=== PATIENT | female | born 1975 | race Two or more races ===

== ENCOUNTER 2019-03-22 12:50 | Observation (INO) | payer OTHER ==
[~2019-03-22] VITALS: Ht 161 cm; Wt 78.0 kg
[~2019-03-22 12:50] MED LIST: ACET-66 PO; FERR1TAB24 PO; PREN1TAB22 PO
[2019-03-22 14:23] VITALS: BP 113/73
[2019-03-22] MEDS ORDERED: PROG200C11 VG (14:25)
[2019-03-22] MEDS ORDERED: FOLI0.4T14 PO (14:25)
[2019-03-22] MEDS ORDERED: NIFEdipine 10 MG CAPSULE PO ONE ×2 (14:45→16:45)
[2019-03-22] MEDS ORDERED: FERR-89 PO (16:34)
[2019-03-22] MEDS ORDERED: PREN1TAB80 PO (16:34)
[2019-03-22] MEDS ORDERED: RINGERS SOLUTION,LACTATED 1,000 ML IV ONE (16:42)
[2019-03-22] MEDS ORDERED: RINGERS SOLUTION,LACTATED 1,000 ML IV SCH (18:18)
[2019-03-22] MEDS ORDERED: RINGERS SOLUTION,LACTATED 1,000 ML IV PRN (18:18)
[2019-03-22] MEDS ORDERED: METOCLOPRAMIDE HCL 5 MG/ML 2 ML VIAL IVP PRN (18:30)
[2019-03-22] MEDS ORDERED: CITRIC ACID/SODIUM CITRATE 30 ML SOLUTION UDCUP PO PRN (18:30)
[2019-03-22] MEDS ORDERED: MAGNESIUM SULFATE 4 GM/WATER 100 ML IV ONE ×2 (18:30→19:30)
[2019-03-22] MEDS ORDERED: CITRIC ACID/SODIUM CITRATE 30 ML SOLUTION UDCUP PO ONE (18:30)
[2019-03-22] MEDS ORDERED: FentaNYL CITRATE-PF 100 MCG/2 ML VIAL IVP PRN (18:30)
[2019-03-22] MEDS ORDERED: TERBUTALINE SULFATE 1 MG/ML VIAL SQ PRN (18:30)
[2019-03-22] MEDS ORDERED: METOCLOPRAMIDE HCL 5 MG/ML 2 ML VIAL IVP ONE (18:30)
[2019-03-22] MEDS: BETAMETHASONE SOLUSPAN 6 MG/ML 5 ML VIAL IM SCH (18:56)
[2019-03-22 19:09] LABS: BASOPHILS % (AUTO) 0.6 % (0.0-2.0); EOSINOPHILS % (AUTO) 1.4 % (1.0-6.0); HEMATOCRIT 33.5 % (36-46); HEMOGLOBIN 11.2 g/dL (12.0-16.0); LYMPHOCYTES # (AUTO) 1.5 K/uL (1.0-4.8); LYMPHOCYTES % (AUTO) 16.4 % (22.0-44.0); MEAN CORPUSCULAR HEMOGLOBIN 27.5 pg (26.0-34.0); MEAN CORPUSCULAR HGB CONC 33.4 G/dL (31.0-37.0); MEAN CORPUSCULAR VOLUME 82 fL (80-100); MONOCYTES # (AUTO) 0.3 K/uL (0.1-1.0); MONOCYTES % (AUTO) 3.5 % (2.0-9.0); NEUTROPHILS % (AUTO) 78.1 % (40.0-70.0); PLATELET COUNT (AUTO)-OB 287 K/uL (150-450); RED BLOOD CELL COUNT(AUTO) 4.07 MIL/uL (4.00-5.20); RED CELL DISTRIBUTION WIDTH 14.1 % (11.5-14.5)
[2019-03-22] MEDS ORDERED: CALCIUM GLUCONATE 100 MG/ML 10 ML IVP PRN (19:30)
[2019-03-22] MEDS: ACETAMINOPHEN 500 MG TABLET PO PRN (19:50)
[2019-03-22] MEDS ORDERED: OXYGEN THERAPY IH SCH (20:00)
[2019-03-22] MEDS: MAGNESIUM SULFATE 500 ML IV SCH (20:22)
[2019-03-23] MEDS: MAGNESIUM SULFATE 500 ML IV SCH (06:11)
[2019-03-23] MEDS: BETAMETHASONE SOLUSPAN 6 MG/ML 5 ML VIAL IM SCH (07:01)
[2019-03-23] MEDS: ACETAMINOPHEN 500 MG TABLET PO PRN (07:40)
== END 2019-03-23 12:20 | disposition home or self-care (01) ==
LOC: OBSVTOIN 12:50 → INTOOBSV 12:50 → 4S 12:50
PROVIDERS: ADMIT Obstetrics & Gynecology; ATTEND Obstetrics & Gynecology
DX: O60.03 Preterm labor without delivery, third trimester (principal); O26.893 Other specified pregnancy related conditions, third trimester; R51 Headache; Z3A.36 36 weeks gestation of pregnancy; Z79.899 Other long term (current) drug therapy
CPT/HCPCS: 36415 ×2; 81002; 83735; 85025; 86850; 86900; 86901; 96365; 96366 ×2; 96372 ×2; G0378 ×2; J0702 ×2; J3475 ×3; J7120 ×2

== ENCOUNTER 2019-03-24 11:55 | Observation (INO) | payer OTHER ==
[~2019-03-24] VITALS: Ht 161 cm; Wt 78.0 kg
[~2019-03-24 11:55] MED LIST changes: +FERR-89 PO; +FOLI0.4T14 PO; +PREN1TAB80 PO; +PROG200C11 VG
[2019-03-24 12:26] VITALS: BP 123/66
[2019-03-24] MEDS ORDERED: DEXTROSE 5%-LACTATED RINGERS 1,000 ML IV SCH (12:30)
[2019-03-24] MEDS ORDERED: RINGERS SOLUTION,LACTATED 1,000 ML IV SCH (14:30)
== END 2019-03-24 15:55 | disposition home or self-care (01) ==
LOC: 4S 11:55
PROVIDERS: ADMIT Obstetrics & Gynecology; ATTEND Obstetrics & Gynecology
DX: O41.93X0 Disorder of amniotic fluid and membranes, unspecified, third trimester, not applicable or unspecified (principal); Z3A.36 36 weeks gestation of pregnancy
CPT/HCPCS: 76805; G0378; X7700

== ENCOUNTER 2019-03-31 10:15 | Inpatient (IN) | payer OTHER ==
[~2019-03-31] VITALS: Ht 160 cm; Wt 77.6 kg
[~2019-03-31 10:15] MED LIST changes: -FERR1TAB24 PO; -PREN1TAB22 PO
[2019-03-31] MEDS ORDERED: PREN-217 PO (11:12)
[2019-03-31] MEDS ORDERED: CITRIC ACID/SODIUM CITRATE 30 ML SOLUTION UDCUP PO ONE (11:15)
[2019-03-31] MEDS ORDERED: METOCLOPRAMIDE HCL 5 MG/ML 2 ML VIAL IVP ONE (11:15)
[2019-03-31 11:19] VITALS: BP 118/72
[2019-03-31 11:48] LABS: BASOPHILS % (AUTO) 0.4 % (0.0-2.0); EOSINOPHILS % (AUTO) 1.2 % (1.0-6.0); HEMATOCRIT 34.5 % (36-46); HEMOGLOBIN 11.4 g/dL (12.0-16.0); LYMPHOCYTES # (AUTO) 1.4 K/uL (1.0-4.8); LYMPHOCYTES % (AUTO) 16.3 % (22.0-44.0); MEAN CORPUSCULAR HEMOGLOBIN 27.2 pg (26.0-34.0); MEAN CORPUSCULAR HGB CONC 33.1 G/dL (31.0-37.0); MEAN CORPUSCULAR VOLUME 82 fL (80-100); MONOCYTES # (AUTO) 0.5 K/uL (0.1-1.0); MONOCYTES % (AUTO) 5.4 % (2.0-9.0); NEUTROPHILS # (AUTO) 6.8 K/uL (1.8-7.7); NEUTROPHILS % (AUTO) 76.7 % (40.0-70.0); PLATELET COUNT (AUTO)-OB 293 K/uL (150-450); RED CELL DISTRIBUTION WIDTH 14.2 % (11.5-14.5)
[2019-03-31] MEDS ORDERED: MORPHINE SULFATE/PF 1 MG/ML 10 ML AMP ONE (12:04)
[2019-03-31] MEDS ORDERED: MIDAZOLAM HCL 2 MG/2 ML VIAL ONE (12:04)
[2019-03-31] MEDS ORDERED: FentaNYL CITRATE-PF 100 MCG/2 ML VIAL ONE (12:04)
[2019-03-31] MEDS ORDERED: BUPIVACAINE HCL/DEX-WATER/PF 0.75% 2 ML AMP ONE (12:05)
[2019-03-31] MEDS ORDERED: ONDANSETRON HCL 4 MG/2 ML VIAL IVP PRN (12:45)
[2019-03-31] MEDS ORDERED: NALOXONE HCL 0.4 MG/ML VIAL IVP PRN (12:45)
[2019-03-31] MEDS ORDERED: ACETAMINOPHEN 1000 MG/ISO-OSM 100 ML IV ONE ×2 (12:45→17:52)
[2019-03-31] MEDS ORDERED: DiphenhydrAMINE HCL 50 MG/ML VIAL IVP PRN (12:45)
[2019-03-31] MEDS ORDERED: OXYTOCIN 30 UNITS/LACT RINGERS 500 ML IV ONE (14:11)
[2019-03-31] MEDS ORDERED: RINGERS SOLUTION,LACTATED 1,000 ML IV SCH (14:11)
[2019-03-31] MEDS: MAGNESIUM HYDROXIDE SUSPENSION 30 ML UDCUP PO SCH ×2 (14:15→21:00)
[2019-03-31] MEDS ORDERED: OxyCODONE HCL/ACETAMINOPHEN 5-325 MG TABLET PO PRN (14:15)
[2019-03-31] MEDS ORDERED: LANOLIN 7 GM OINTMENT TP PRN (14:15)
[2019-03-31] MEDS ORDERED: KETOROLAC TROMETHAMINE 30 MG/ML VIAL IVP SCH (18:00)
[2019-03-31] MEDS ORDERED: OXYGEN THERAPY IH SCH ×2 (20:00)
[2019-03-31] MEDS: KETOROLAC TROMETHAMINE 30 MG/ML VIAL IVP SCH (21:05)
[2019-04-01] MEDS: KETOROLAC TROMETHAMINE 30 MG/ML VIAL IVP SCH ×2 (03:06→09:36)
[2019-04-01] MEDS ORDERED: 0.9% SODIUM CHLORIDE 10 ML VIAL IVP ONE (05:38)
[2019-04-01] MEDS ORDERED: DEXAMETHASONE SOD PHOS 4 MG/ML VIAL IVP ONE (05:38)
[2019-04-01] MEDS ORDERED: ONDANSETRON HCL 4 MG/2 ML VIAL IVP ONE (05:38)
[2019-04-01] MEDS ORDERED: METOCLOPRAMIDE HCL 5 MG/ML 2 ML VIAL IVP ONE (05:38)
[2019-04-01] MEDS ORDERED: KETOROLAC TROMETHAMINE 60 MG/2 ML VIAL IM ONE (05:38)
[2019-04-01] MEDS ORDERED: OXYTOCIN 10 UNITS/ML VIAL IM ONE (05:38)
[2019-04-01 07:00] LABS: BASOPHILS % (AUTO) 0.2 % (0.0-2.0); EOSINOPHILS % (AUTO) 0.1 % (1.0-6.0); HEMATOCRIT 31.8 % (36-46); HEMOGLOBIN 10.8 g/dL (12.0-16.0); LYMPHOCYTES # (AUTO) 1.3 K/uL (1.0-4.8); LYMPHOCYTES % (AUTO) 8.6 % (22.0-44.0); MEAN CORPUSCULAR HEMOGLOBIN 27.7 pg (26.0-34.0); MEAN CORPUSCULAR HGB CONC 33.9 G/dL (31.0-37.0); MEAN CORPUSCULAR VOLUME 82 fL (80-100); MONOCYTES # (AUTO) 1.1 K/uL (0.1-1.0); MONOCYTES % (AUTO) 7.3 % (2.0-9.0); NEUTROPHILS # (AUTO) 12.4 K/uL (1.8-7.7); NEUTROPHILS % (AUTO) 83.8 % (40.0-70.0); PLATELET COUNT (AUTO)-OB 280 K/uL (150-450); RED BLOOD CELL COUNT(AUTO) 3.88 MIL/uL (4.00-5.20); RED CELL DISTRIBUTION WIDTH 13.9 % (11.5-14.5)
[2019-04-01] MEDS: MAGNESIUM HYDROXIDE SUSPENSION 30 ML UDCUP PO SCH ×2 (09:36→20:17)
[2019-04-01] MEDS ORDERED: OxyCODONE HCL/ACETAMINOPHEN 5-325 MG TABLET PO PRN (14:15)
[2019-04-01] MEDS: OxyCODONE HCL/ACETAMINOPHEN 5-325 MG TABLET PO PRN (15:25)
[2019-04-01] MEDS: IBUPROFEN 800 MG TABLET PO PRN ×2 (16:20→20:17)
[2019-04-02] MEDS: IBUPROFEN 800 MG TABLET PO PRN ×3 (06:48→20:08)
[2019-04-02] MEDS: MAGNESIUM HYDROXIDE SUSPENSION 30 ML UDCUP PO SCH ×2 (09:27→21:00)
[2019-04-02] MEDS: OxyCODONE HCL/ACETAMINOPHEN 5-325 MG TABLET PO PRN (13:51)
[2019-04-03] MEDS: OxyCODONE HCL/ACETAMINOPHEN 5-325 MG TABLET PO PRN (00:46)
[2019-04-03] MEDS: IBUPROFEN 800 MG TABLET PO PRN ×2 (08:50→11:59)
[2019-04-03] MEDS: MAGNESIUM HYDROXIDE SUSPENSION 30 ML UDCUP PO SCH (09:00)
[2019-04-03] MEDS ORDERED: IBUP-2070 PO (11:39)
[2019-04-03] MEDS ORDERED: PERCT PO (11:42)
== END 2019-04-03 12:10 | disposition home or self-care (01) | DRG 785 ==
LOC: OBSVTOIN 10:15 → 4S 10:15
PROVIDERS: ADMIT Obstetrics & Gynecology; ATTEND Obstetrics & Gynecology
PROC: 10D00Z1 Extraction of Products of Conception, Low, Open Approach (ICD-10-PCS; principal; 2019-03-31)
PROC: 0UB70ZZ Excision of Bilateral Fallopian Tubes, Open Approach (ICD-10-PCS; 2019-03-31)
DX: O34.211 Maternal care for low transverse scar from previous cesarean delivery (principal); Z3A.37 37 weeks gestation of pregnancy; Z37.0 Single live birth
CPT/HCPCS: 86850; 86900; 86901; 86920; 87081; 88302; J0131; J0690; J1100; J1200; J1885; J2250; J2405; J2590; J2765; J3010; J3490; J7120